=== PATIENT | female | born 1945 ===

== ENCOUNTER 2018-06-27 09:49 | Inpatient (IN) | payer MEDICARE ==
[2018-06-27 10:04] VITALS: BMI 30.7
[2018-06-27 10:08] LABS: BASO # 0.1 K/uL (0.0-0.2); BASO % 0.8 % (0.0-2.0); EOS # 0.2 K/uL (0.0-0.7); HEMOGLOBIN 12.2 g/dL (11.0-16.0); LYMPH # 5.3 K/uL (1.0-4.3); LYMPH % 29.6 % (20.0-40.0); MEAN CELL VOLUME 83.2 fL (81.0-99.0); MEAN CORPUSCULAR HEMOGLOBIN 27.3 pg (27.0-31.0); MEAN CORPUSCULAR HGB CONC 32.8 g/dL (33.0-37.0); MEAN PLATELET VOLUME 8.7 fL (7.2-11.7); MONO # 1.3 K/uL (0.0-0.8); MONO % 7.3 % (0.0-10.0); NEUT % 61.3 % (50.0-75.0); NRBC % 0.1 % (0.0-2.0); RBC 4.48 Mil/uL (3.80-5.20); RED CELL DISTRIBUTION WIDTH 16.3 % (11.5-14.5)
[2018-06-27 10:20] LABS: BLOOD UREA NITROGEN 21 mg/dL (7-17); CALCIUM 8.9 mg/dl (8.6-10.4); GFR NON-AFRICAN AMERICAN > 60
[2018-06-27 10:27] LABS: ALBUMIN 4.2 g/dL (3.5-5.0); ALT/SGPT 33 U/L (9-52); AST/SGOT 48 U/L (14-36)
[2018-06-27] MEDS ORDERED: Nitroglycerin 2% Ointment Foilpak UD TOP STA (10:27)
[2018-06-27] MEDS ORDERED: Nitroglycerin 2% Ointment Foilpak UD TOP ONE (10:36)
--- NOTE | 2018-06-27 10:56 | C.PDOC ---
History Of Present Illness 72 y/o female is brought in via ALS with chief complaints of chest pain. Patient complains of left-sided chest pain radiating to jaw that started this morning. Patient has history of valve replacement and atrial fibrillation, takes warfarin. Patient describes the pain is dull and constant. Denies back pain. EMS alerted ER and Dr. Barreto for possible STEMI. Time Seen by Provider: 06/27/18 09:59 Chief Complaint (Nursing): Chest Pain History Per: Patient, EMS History/Exam Limitations: no limitations Onset/Duration Of Symptoms: Hrs Current Symptoms Are (Timing): Still Present Past Medical History Reviewed: Historical Data, Nursing Documentation, Vital Signs Vital Signs: Last Vital Signs Temp 98.4 F 06/27/18 10:19 Pulse 70 06/27/18 10:19 Resp 18 06/27/18 10:19 BP 159/82 H 06/27/18 10:19 Pulse Ox 97 06/27/18 10:19 Primary Care Provider: Heather Brooke - Medical History PMH: Atrial Fibrillation, Cardia Arrhythmia, HTN, Hypercholesterolemia Surgical History: CABG Family History: States: CAD - Social History Hx Tobacco Use: No Hx Alcohol Use: No Hx Substance Use: No - Immunization History Hx Tetanus Toxoid Vaccination: No Hx Influenza Vaccination: Yes (10/2017) Hx Pneumococcal Vaccination: Yes Review Of Systems Except As Marked, All Systems Reviewed And Found Negative. Constitutional: Negative for: Fever, Sweats Cardiovascular: Positive for: Chest Pain (left-sided) Respiratory: Negative for: Cough, Shortness of Breath Gastrointestinal: Negative for: Nausea, Vomiting Physical Exam - Physical Exam Appears: Non-toxic, No Acute Distress Skin: Warm, Dry Head: Atraumatic, Normacephalic Eye(s): bilateral: Normal Inspection Oral Mucosa: Moist Neck: Supple Cardiovascular: Rhythm Regular, No Murmur Respiratory: Normal Breath Sounds, No Rales, No Rhonchi, No Wheezing Gastrointestinal/Abdominal: Soft, No Tenderness Extremity: Bilateral: Atraumatic, Normal ROM Neurological/Psych: Oriented x3, Normal Speech ED Course And Treatment - Laboratory Results Result Diagrams: 06/27/18 10:03 06/27/18 10:03 Lab Results: Troponin I 0.0370 ng/mL (0.00-0.120) 06/27/18 10:03 Total Bilirubin 0.9 mg/dL (0.2-1.3) 06/27/18 10:03 AST 48 U/L (14-36) H 06/27/18 10:03 ALT 33 U/L (9-52) 06/27/18 10:03 Alkaline Phosphatase 140 U/L (38-126) H 06/27/18 10:03 Total Protein 8.1 g/dL (6.3-8.3) 06/27/18 10:03 Albumin 4.2 g/dL (3.5-5.0) 06/27/18 10:03 Globulin 4.0 gm/dL (2.2-3.9) H 06/27/18 10:03 Albumin/Globulin Ratio 1.0 (1.0-2.1) 06/27/18 10:03 ECG: Interpreted By Me, Viewed By Me ECG Rhythm: Atrial Fibrillation Interpretation Of ECG: ST depression in leads aVF, v3-v6. No ST elevation. Rate From EC O2 Sat by Pulse Oximetry: 97 (RA) Pulse Ox Interpretation: Normal - Other Rad CXR X-Ray: Read By Radiologist Interpretation: FINDINGS: LUNGS: Wabq-lf-snmhptlh pulmonary vascular congestion is noted. PLEURA: Blunting of the costophrenic angle. CARDIOVASCULAR: Cardiomegaly is noted. Post cardiac surgery changes are noted. OSSEOUS STRUCTURES: No significant abnormalities. VISUALIZED UPPER ABDOMEN: Normal. OTHER FINDINGS: None. IMPRESSION: Cardiomegaly and ojfk-ng-zuoyhako pulmonary vascular congestion. Medical Decision Making Medical Decision Making: Plan: --EKG --Labs --Chest XR --Lasix 40 mg IVP --Nitro-Bid Re-evaluation: 10:55 -- Patient has improved and Dr. Doshi is in the ER to evaluate patient. Accepted patient for admission. Disposition Discussed With : Johnnie Doshi Doctor Will See Patient In The: ED Counseled Patient/Family Regarding: Diagnosis - Disposition Disposition: HOSPITALIZED Disposition Time: 10:56 Condition: STABLE - Clinical Impression Clinical Impression: Chest pain, Heart failure - Scribe Statement The provider has reviewed the documentation as recorded by the Tod Livingston Provider Attestation: All medical record entries made by the Lisaibmila were at my direction and personally dictated by me. I have reviewed the chart and agree that the record accurately reflects my personal performance of the history, physical exam, medical decision making, and the department course for this patient. I have also personally directed, reviewed, and agree with the discharge instructions and disposition.
[2018-06-27 11:28] LABS: B-TYPE NATRIURETIC PEPTIDE 380 pg/mL (0-900)
--- NOTE | 2018-06-27 11:29 | RAD ---
Date of service: 06/27/2018 PROCEDURE: CHEST RADIOGRAPH, 1 VIEW HISTORY: chest pain COMPARISON: None available. FINDINGS: LUNGS: Alet-vw-qwtcrmfj pulmonary vascular congestion is noted. PLEURA: Blunting of the costophrenic angle CARDIOVASCULAR: Cardiomegaly is noted. Post cardiac surgery changes are noted. OSSEOUS STRUCTURES: No significant abnormalities. VISUALIZED UPPER ABDOMEN: Normal. OTHER FINDINGS: None. IMPRESSION: Cardiomegaly and jzlx-bj-snfunpht pulmonary vascular congestion.
[2018-06-27 14:28] LABS: INR 4.2; PROTHROMBIN TIME 46.6 SECONDS (9.7-12.2)
--- NOTE | 2018-06-27 15:24 | CP.PCM.HP ---
Past Patient History - Past Social History Smoking Status: Never Smoked - CARDIAC Hx Atrial Fibrillation: Yes Hx Cardia Arrhythmia: Yes Hx Hypercholesterolemia: Yes Hx Hypertension: Yes - PSYCHIATRIC Hx Substance Use: No - SURGICAL HISTORY Hx Coronary Artery Bypass Graft: Yes Meds Allergies/Adverse Reactions: Allergies Allergy/AdvReac Type Severity Reaction Status Date / Time No Known Allergies Allergy Verified 06/27/18 09:52 Physical Exam - Constitutional Appears: Well - Head Exam Head Exam: ATRAUMATIC, NORMAL INSPECTION, NORMOCEPHALIC - Eye Exam Eye Exam: EOMI, Normal appearance, PERRL Pupil Exam: NORMAL ACCOMODATION, PERRL - ENT Exam ENT Exam: Mucous Membranes Moist, Normal Exam - Neck Exam Neck exam: Positive for: Normal Inspection - Respiratory Exam Respiratory Exam: Decreased Breath Sounds - Cardiovascular Exam Cardiovascular Exam: REGULAR RHYTHM, +S1, +S2 - GI/Abdominal Exam GI & Abdominal Exam: Diminished Bowel Sounds, Soft - Rectal Exam Rectal Exam: Deferred - Neurological Exam Neurological exam: Oriented x3 Results - Vital Signs Recent Vital Signs: Last Vital Signs Temp 98.2 F 06/27/18 11:38 Pulse 79 06/27/18 11:38 Resp 16 06/27/18 11:38 BP 144/80 06/27/18 11:38 Pulse Ox 97 06/27/18 11:58 - Labs Result Diagrams: 06/27/18 10:03 06/27/18 10:03 Labs: Laboratory Results - last 24 hr 06/27/18 06/27/18 06/27/18 10:03 10:03 13:54 WBC 18.0 H RBC 4.48 Hgb 12.2 Hct 37.3 MCV 83.2 MCH 27.3 MCHC 32.8 L RDW 16.3 H Plt Count 283 MPV 8.7 Neut % (Auto) 61.3 Lymph % (Auto) 29.6 [place] % (Auto) 7.3 Eos % (Auto) 1.0 Baso % (Auto) 0.8 Neut # (Auto) 11.0 H Lymph # (Auto) 5.3 H [place] # (Auto) 1.3 H Eos # (Auto) 0.2 Baso # (Auto) 0.1 PT 46.6 H INR 4.2 H* Sodium 135 Potassium 4.5 Chloride 103 Carbon Dioxide 23 Anion Gap 14 BUN 21 H Creatinine 0.6 L Est GFR ( Amer) > 60 Est GFR (Non-Af Amer) > 60 Random Glucose 117 H D Calcium 8.9 Total Bilirubin 0.9 AST 48 H ALT 33 Alkaline Phosphatase 140 H Troponin I 0.0370 NT-Pro-B Natriuret Pep 380 Total Protein 8.1 Albumin 4.2 Globulin 4.0 H Albumin/Globulin Ratio 1.0
[2018-06-27 17:38] LABS: CK-MB 7.16 ng/mL (0.0-3.38); TROPONIN I 2.11 ng/mL (0.00-0.120)
[2018-06-28 00:57] LABS: CK-MB 6.29 ng/mL (0.0-3.38); TROPONIN I 1.7 ng/mL (0.00-0.120)
[2018-06-28] MEDS: Levothyroxine 150 MCG TAB PO SCH (06:04)
[2018-06-28 08:15] LABS: BASO % 0.3 % (0.0-2.0); EOS # 0.2 K/uL (0.0-0.7); EOS % 1.6 % (0.0-4.0); HEMOGLOBIN 13.1 g/dL (11.0-16.0); LYMPH # 2.7 K/uL (1.0-4.3); LYMPH % 22.6 % (20.0-40.0); MEAN CELL VOLUME 82.9 fL (81.0-99.0); MEAN CORPUSCULAR HEMOGLOBIN 27.3 pg (27.0-31.0); MEAN CORPUSCULAR HGB CONC 32.9 g/dL (33.0-37.0); MEAN PLATELET VOLUME 8.5 fL (7.2-11.7); MONO # 1.1 K/uL (0.0-0.8); MONO % 9.2 % (0.0-10.0); NEUT % 66.3 % (50.0-75.0); NRBC % 0.1 % (0.0-2.0); RBC 4.78 Mil/uL (3.80-5.20); RED CELL DISTRIBUTION WIDTH 16.5 % (11.5-14.5); WHITE BLOOD COUNT 12.1 K/uL (4.8-10.8)
[2018-06-28 08:27] LABS: BLOOD UREA NITROGEN 21 mg/dL (7-17); CALCIUM 8.9 mg/dl (8.6-10.4); GFR NON-AFRICAN AMERICAN > 60; HDL CHOLESTEROL 48 mg/dL (30-70)
[2018-06-28 08:35] LABS: INR 4.4; PROTHROMBIN TIME 47.8 SECONDS (9.7-12.2)
[2018-06-28 08:38] LABS: LDL CHOLESTEROL 143 mg/dL (0-129)
[2018-06-28] MEDS: Metoprolol Succinate 50 mg XL Tab PO SCH (09:29)
[2018-06-28] MEDS ORDERED: Enoxaparin 40 mg Syringe SC SCH (10:00)
[2018-06-28] MEDS ORDERED: Metoprolol Succinate 50 mg XL Tab PO SCH (10:00)
--- NOTE | 2018-06-28 16:06 | CP.PCM.PN ---
Subjective - Date & Time of Evaluation Date of Evaluation: 06/28/18 - Subjective Subjective: patient examined today no nausea no vomitng no diarrhea no dizziness no shortness of breath no fever Objective - Vital Signs/Intake and Output Vital Signs (last 24 hours): Temp Pulse Resp BP Pulse Ox 98.5 F 83 20 92/54 L 95 06/28/18 08:58 06/28/18 11:03 06/28/18 08:58 06/28/18 09:29 06/28/18 08:58 - Medications Medications: Current Medications Aspirin (Aspirin Chewable) 81 mg PO DAILY [facility] Last Admin: 06/28/18 09:29 Dose: 81 mg Furosemide (Lasix) 40 mg IVP DAILY [facility] Last Admin: 06/28/18 09:29 Dose: Not Given Levothyroxine Sodium (Synthroid) 150 mcg PO DAILY@0630 [facility] Last Admin: 06/28/18 06:04 Dose: 150 mcg Losartan Potassium (Cozaar) 25 mg PO DAILY [facility] Last Admin: 06/28/18 09:29 Dose: Not Given Metoprolol Succinate (Toprol Xl) 50 mg PO DAILY [facility] Last Admin: 06/28/18 09:29 Dose: Not Given Rosuvastatin Calcium (Crestor) 20 mg PO [facility] - Labs Labs: 06/28/18 08:09 06/28/18 08:09 PT 47.8 SECONDS (9.7-12.2) H 06/28/18 08:09 INR 4.4 H* 06/28/18 08:09 - Constitutional Appears: Well - Head Exam Head Exam: ATRAUMATIC, NORMAL INSPECTION, NORMOCEPHALIC - Eye Exam Eye Exam: EOMI, Normal appearance, PERRL Pupil Exam: NORMAL ACCOMODATION, PERRL - ENT Exam ENT Exam: Mucous Membranes Moist, Normal Exam - Neck Exam Neck Exam: Full ROM, Normal Inspection. absent: Lymphadenopathy - Respiratory Exam Respiratory Exam: Decreased Breath Sounds - Cardiovascular Exam Cardiovascular Exam: REGULAR RHYTHM, +S1, +S2 - GI/Abdominal Exam GI & Abdominal Exam: Soft, Diminished Bowel Sounds - Rectal Exam Rectal Exam: Deferred - Neurological Exam Neurological Exam: Oriented x3 Assessment and Plan - Assessment and Plan (Free Text) Plan: plan discussed with patient and family moderate complexity of care medications reviewed aspirin chewable cozaar crestor lasix synthroid toprol xl vitals reviewed labs reviewed
--- NOTE | 2018-06-28 20:44 | CP.PCM.CON ---
History of Present Illness - History of Present Illness History of Present Illness: 72 y/o female is brought in via ALS with chief complaints of chest pain. Patient complains of left-sided chest pain radiating to jaw that started this morning. Patient has history of valve replacement and atrial fibrillation, takes war farin. Patient describes the pain is dull and constant. Denies back pain. EMS alerted ER and Dr. Barreto for possible STEMI. Chief Complaint (Nursing): Chest Pain History Per: Patient, EMS History/Exam Limitations: no limitations Onset/Duration Of Symptoms: Hrs Current Symptoms Are (Timing): Still Present Past Medical History Reviewed: Historical Data, Nursing Documentation, Vital Signs Vital Signs: Last Vital Signs Temp 98.4 F 06/27/18 10:19 Pulse 70 06/27/18 10:19 Resp 18 06/27/18 10:19 BP 159/82 H 06/27/18 10:19 Pulse Ox 97 06/27/18 10:19 Primary Care Provider: Heather Brooke - Medical History PMH: Atrial Fibrillation, Cardia Arrhythmia, HTN, Hypercholesterolemia Surgical History: CABG Family History: States: CAD - Social History Hx Tobacco Use: No Hx Alcohol Use: No Hx Substance Use: No - Immunization History Hx Tetanus Toxoid Vaccination: No Hx Influenza Vaccination: Yes (10/2017) Hx Pneumococcal Vaccination: Yes Review Of Systems Except As Marked, All Systems Reviewed And Found Negative. Constitutional: Negative for: Fever, Sweats Cardiovascular: Positive for: Chest Pain (left-sided) Respiratory: Negative for: Cough, Shortness of Breath Gastrointestinal: Negative for: Nausea, Vomiting Physical Exam - Physical Exam Appears: Non-toxic, No Acute Distress Skin: Warm, Dry Head: Atraumatic, Normacephalic Eye(s): bilateral: Normal Inspection Oral Mucosa: Moist Neck: Supple Cardiovascular: Rhythm Regular, No Murmur Respiratory: Normal Breath Sounds, No Rales, No Rhonchi, No Wheezing Gastrointestinal/Abdominal: Soft, No Tenderness Extremity: Bilateral: Atraumatic, Normal ROM Neurological/Psych: Oriented x3, Normal Speech Past Patient History - Past Social History Smoking Status: Never Smoked - CARDIAC Hx Atrial Fibrillation: Yes Hx Cardia Arrhythmia: Yes Hx Hypercholesterolemia: Yes Hx Hypertension: Yes - PSYCHIATRIC Hx Substance Use: No - SURGICAL HISTORY Hx Coronary Artery Bypass Graft: Yes Meds Allergies/Adverse Reactions: Allergies Allergy/AdvReac Type Severity Reaction Status Date / Time No Known Allergies Allergy Verified 06/27/18 09:52 - Medications Medications: Current Medications Aspirin (Aspirin Chewable) 81 mg PO DAILY [facility] Last Admin: 06/28/18 09:29 Dose: 81 mg Furosemide (Lasix) 20 mg IVP DAILY [facility] Levothyroxine Sodium (Synthroid) 150 mcg PO DAILY@0630 [facility] Last Admin: 06/28/18 06:04 Dose: 150 mcg Losartan Potassium (Cozaar) 25 mg PO DAILY [facility] Last Admin: 06/28/18 09:29 Dose: Not Given Metoprolol Succinate (Toprol Xl) 50 mg PO DAILY [facility] Last Admin: 06/28/18 09:29 Dose: Not Given Rosuvastatin Calcium (Crestor) 20 mg PO [facility] Results - Vital Signs Recent Vital Signs: Last Vital Signs Temp 98.5 F 06/28/18 08:58 Pulse 79 06/28/18 20:00 Resp 20 06/28/18 08:58 BP 92/54 L 06/28/18 09:29 Pulse Ox 95 06/28/18 08:58 - Labs Result Diagrams: 06/28/18 08:09 06/28/18 08:09 Labs: Laboratory Results - last 24 hr 06/28/18 06/28/18 06/28/18 00:22 08:09 08:09 WBC 12.1 H RBC 4.78 Hgb 13.1 Hct 39.7 MCV 82.9 MCH 27.3 MCHC 32.9 L RDW 16.5 H Plt Count 281 MPV 8.5 Neut % (Auto) 66.3 Lymph % (Auto) 22.6 [place] % (Auto) 9.2 Eos % (Auto) 1.6 Baso % (Auto) 0.3 Neut # (Auto) 8.0 H Lymph # (Auto) 2.7 [place] # (Auto) 1.1 H Eos # (Auto) 0.2 Baso # (Auto) 0.0 PT INR Sodium 136 Potassium 4.0 Chloride 100 Carbon Dioxide 27 Anion Gap 14 BUN 21 H Creatinine 0.7 Est GFR ( Amer) > 60 Est GFR (Non-Af Amer) > 60 Random Glucose 105 Calcium 8.9 Total Creatine Kinase 98 CK-MB (Mass) 6.29 H Troponin I 1.7000 H* Triglycerides 213 H Cholesterol 236 H LDL Cholesterol Direct 143 H HDL Cholesterol 48 Free T4 TSH 3rd Generation 3.74 06/28/18 06/28/18 08:09 08:09 WBC RBC Hgb Hct MCV MCH MCHC RDW Plt Count MPV Neut % (Auto) Lymph % (Auto) [place] % (Auto) Eos % (Auto) Baso % (Auto) Neut # (Auto) Lymph # (Auto) [place] # (Auto) Eos # (Auto) Baso # (Auto) PT 47.8 H INR 4.4 H* Sodium Potassium Chloride Carbon Dioxide Anion Gap BUN Creatinine Est GFR ( Amer) Est GFR (Non-Af Amer) Random Glucose Calcium Total Creatine Kinase CK-MB (Mass) Troponin I Triglycerides Cholesterol LDL Cholesterol Direct HDL Cholesterol Free T4 1.26 TSH 3rd Generation Assessment & Plan - Assessment and Plan (Free Text) Assessment: 72 F with hx of A Fib admitted for ACS INR >4.0 Start ASA 81 daily Start Statins, B blockers and Nitrates Check ECHO. Follow ROMIs and INR Once INR <2.0 cardiac cath Will d/w Patient's Primary Loan Collector
--- NOTE | 2018-06-28 20:57 | CP.PCM.PN ---
Subjective - Date & Time of Evaluation Date of Evaluation: 06/28/18 Time of Evaluation: 18:25 - Subjective Subjective: Patient seen and evaluated denies chest pain and dyspnea Review Of Systems Except As Marked, All Systems Reviewed And Found Negative. Constitutional: Negative for: Fever, Sweats Cardiovascular: Positive for: Chest Pain (left-sided) Respiratory: Negative for: Cough, Shortness of Breath Gastrointestinal: Negative for: Nausea, Vomiting Physical Exam - Physical Exam Appears: Non-toxic, No Acute Distress Skin: Warm, Dry Head: Atraumatic, Normacephalic Eye(s): bilateral: Normal Inspection Oral Mucosa: Moist Neck: Supple Cardiovascular: Rhythm Regular, No Murmur Respiratory: Normal Breath Sounds, No Rales, No Rhonchi, No Wheezing Gastrointestinal/Abdominal: Soft, No Tenderness Extremity: Bilateral: Atraumatic, Normal ROM Neurological/Psych: Oriented x3, Normal Speech Objective - Vital Signs/Intake and Output Vital Signs (last 24 hours): Temp Pulse Resp BP Pulse Ox 98.5 F 79 20 92/54 L 95 06/28/18 08:58 06/28/18 20:00 06/28/18 08:58 06/28/18 09:29 06/28/18 08:58 - Medications Medications: Current Medications Aspirin (Aspirin Chewable) 81 mg PO DAILY [facility] Last Admin: 06/28/18 09:29 Dose: 81 mg Furosemide (Lasix) 20 mg IVP DAILY [facility] Levothyroxine Sodium (Synthroid) 150 mcg PO DAILY@0630 [facility] Last Admin: 06/28/18 06:04 Dose: 150 mcg Losartan Potassium (Cozaar) 25 mg PO DAILY [facility] Last Admin: 06/28/18 09:29 Dose: Not Given Metoprolol Succinate (Toprol Xl) 50 mg PO DAILY [facility] Last Admin: 06/28/18 09:29 Dose: Not Given Rosuvastatin Calcium (Crestor) 20 mg PO [facility] - Labs Labs: 06/28/18 08:09 06/28/18 08:09 PT 47.8 SECONDS (9.7-12.2) H 06/28/18 08:09 INR 4.4 H* 06/28/18 08:09 Assessment and Plan - Assessment and Plan (Free Text) Assessment: 72 F with hx of A Fib admitted for ACS INR >4.0 On ASA 81 daily On Statins, B blockers and Nitrates Check ECHO. Follow ROMIs and INR Once INR <2.0 cardiac cath Will d/w Patient's Primary Call Center Trainer
[2018-06-29] MEDS: Levothyroxine 150 MCG TAB PO SCH (05:41)
[2018-06-29 08:38] LABS: HEMOGLOBIN 12.9 g/dL (11.0-16.0); MEAN CELL VOLUME 83.2 fL (81.0-99.0); MEAN CORPUSCULAR HEMOGLOBIN 27.2 pg (27.0-31.0); MEAN CORPUSCULAR HGB CONC 32.7 g/dL (33.0-37.0); MEAN PLATELET VOLUME 8.3 fL (7.2-11.7); RBC 4.75 Mil/uL (3.80-5.20); RED CELL DISTRIBUTION WIDTH 16.6 % (11.5-14.5); WHITE BLOOD COUNT 11.3 K/uL (4.8-10.8)
[2018-06-29 08:49] LABS: BLOOD UREA NITROGEN 22 mg/dL (7-17); CALCIUM 8.9 mg/dl (8.6-10.4); GFR NON-AFRICAN AMERICAN > 60
[2018-06-29 08:58] LABS: INR 3.1; PROTHROMBIN TIME 34.2 SECONDS (9.7-12.2)
[2018-06-29 09:07] LABS: CK-MB 1.65 ng/mL (0.0-3.38)
[2018-06-29] MEDS: Metoprolol Succinate 50 mg XL Tab PO SCH (09:08)
--- NOTE | 2018-06-29 13:52 | VASCLAB ---
Date of service: 06/29/2018 PROCEDURE: Lower Extremity Venous Duplex Exam. HISTORY: B/L extremities swelling PRIORS: None. TECHNIQUE: Bilateral common femoral, femoral, popliteal and posterior tibial, peroneal and great saphenous veins were evaluated. Flow was assessed with color Doppler, compressibility, assessment of phasic flow and augmentation response. Report prepared by BESS Chu FINDINGS: RIGHT: 1. Common Femoral Vein: 1.1. Compressibility - Fully compressible: Thrombus - None : Flow - Phasic: Augmentation -Normal: Reflux - None. 2. Femoral Vein: 2.1. Compressibility - Fully compressible: Thrombus - None : Flow - Phasic: Augmentation -Normal: Reflux - None. 3. Popliteal Vein: 3.1. Compressibility - Fully compressible: Thrombus - None : Flow - Phasic: Augmentation -Normal: Reflux - None. 4. Posterior Tibial Vein: 4.1. Compressibility - Fully compressible: Thrombus - None: Flow - Phasic: Augmentation -Normal: Reflux - None. 5. Peroneal Vein: 5.1. Compressibility - Fully compressible: Thrombus - None: Flow - Phasic: Augmentation -Normal: Reflux - None. 6. Great Saphenous Vein: 6.1. Compressibility - Fully compressible: Thrombus - None: Flow - Phasic: Augmentation - Normal: Reflux - None. LEFT: 1. Common Femoral Vein: 1.1. Compressibility - Fully compressible: Thrombus - None: Flow - Phasic: Augmentation -Normal: Reflux - None. 2. Femoral Vein: 2.1. Compressibility - Fully compressible: Thrombus - None: Flow - Phasic: Augmentation -Normal: Reflux - None. 3. Popliteal Vein: 3.1. Compressibility - Fully compressible: Thrombus - None : Flow - Phasic: Augmentation -Normal: Reflux - None. 4. Posterior Tibial Vein: 4.1. Compressibility - Fully compressible: Thrombus - None: Flow - Phasic: Augmentation -Normal: Reflux - None. 5. Peroneal Vein: 5.1. Compressibility - Fully compressible: Thrombus - None: Flow - Phasic: Augmentation -Normal: Reflux - None. 6. Great Saphenous Vein: 6.1. Compressibility - Fully compressible: Thrombus - None: Flow - Phasic: Augmentation - Normal: Reflux - None. OTHER FINDINGS: Right: None significant. Left: None significant. IMPRESSION: Right: No evidence of deep or superficial vein thrombosis of the right lower extremity. Normal valve function noted of the right side. Left: No evidence of deep or superficial vein thrombosis of the left lower extremity. Normal valve function noted of the left side.
--- NOTE | 2018-06-29 19:15 | CP.PCM.PN ---
Subjective - Date & Time of Evaluation Date of Evaluation: 06/29/18 - Subjective Subjective: patient examined today no nasusea no vomiting no fever no dizziness no shortness of breath Objective - Vital Signs/Intake and Output Vital Signs (last 24 hours): Temp Pulse Resp BP Pulse Ox 98.5 F 71 18 106/63 95 06/29/18 15:35 06/29/18 16:00 06/29/18 15:35 06/29/18 15:35 06/29/18 15:35 - Medications Medications: Current Medications Aspirin (Aspirin Chewable) 81 mg PO DAILY [facility] Last Admin: 06/29/18 09:08 Dose: 81 mg Furosemide (Lasix) 20 mg IVP DAILY [facility] Last Admin: 06/29/18 09:09 Dose: 20 mg Levothyroxine Sodium (Synthroid) 150 mcg PO DAILY@0630 [facility] Last Admin: 06/29/18 05:41 Dose: 150 mcg Losartan Potassium (Cozaar) 25 mg PO DAILY [facility] Last Admin: 06/29/18 09:08 Dose: 25 mg Metoprolol Succinate (Toprol Xl) 50 mg PO DAILY [facility] Last Admin: 06/29/18 09:08 Dose: 50 mg Rosuvastatin Calcium (Crestor) 20 mg PO HS [facility] Last Admin: 06/28/18 21:15 Dose: 20 mg - Labs Labs: 06/29/18 08:27 06/29/18 08:27 PT 34.2 SECONDS (9.7-12.2) H D 06/29/18 08:27 INR 3.1 H* D 06/29/18 08:27 - Constitutional Appears: Well - Head Exam Head Exam: ATRAUMATIC, NORMAL INSPECTION, NORMOCEPHALIC - Eye Exam Eye Exam: EOMI, Normal appearance, PERRL Pupil Exam: NORMAL ACCOMODATION, PERRL - ENT Exam ENT Exam: Mucous Membranes Moist, Normal Exam - Neck Exam Neck Exam: Full ROM, Normal Inspection. absent: Lymphadenopathy - Respiratory Exam Respiratory Exam: Decreased Breath Sounds - Cardiovascular Exam Cardiovascular Exam: REGULAR RHYTHM, +S1, +S2 - GI/Abdominal Exam GI & Abdominal Exam: Soft, Diminished Bowel Sounds - Rectal Exam Rectal Exam: Deferred - Neurological Exam Neurological Exam: Oriented x3 Assessment and Plan - Assessment and Plan (Free Text) Plan: aspirin chewable cozaar crestor lasix synthroid toprol xl vitals reviewed labs reviewed plan discussed with patient and family moderate complexity of care medications reviewed
--- NOTE | 2018-06-29 19:49 | CARD ---
APPROVED REPORT Date of service: 06/27/2018 EKG Measurement Heart [id number] <Conclusion> Atrial fibrillation ST & T wave abnormality, consider inferior ischemia Abnormal ECG
--- NOTE | 2018-06-29 21:14 | CARD ---
APPROVED REPORT Date of service: 06/29/2018 EXAM: Two-dimensional and M-mode echocardiogram with Doppler and color Doppler. INDICATION Atrial Fibrillation cabg, mvr RISK FACTORS Hypertension Hyperlipidemia 2D DIMENSIONS IVSd1.0 (0.7-1.1cm)LVDd3.9 (3.9-5.9cm) PWd1.0 (0.7-1.1cm)LA Devxpw97 (18-58mL) LVDs2.7 (2.5-4.0cm)FS (%) 30.8 % LVEF (%)59.0 (>50%)LVEF (Pantoja's)61.17 % M-Mode DIMENSIONS Left Atrium (MM)5.41 (2.5-4.0cm)IVSd1.02 (0.7-1.1cm) Aortic Root2.91 (2.2-3.7cm)LVDd5.27 (4.0-5.6cm) Aortic Cusp Exc.1.99 (1.5-2.0cm)PWd0.80 (0.7-1.1cm) FS (%) 19 %LVDs4.24 (2.0-3.8cm) LVEF (%)60 (>50%) Mitral Valve MV E Eqbpszww464.6cm/sMV E Peak Gr.8mmHgMV E Mean Gr.3mmHg E/A ratio0.0 TDI E/Lateral E'0.0E/Medial E'0.0 Tricuspid Valve TR Peak [id number]/sTR Peak Gr.[id number] LEFT VENTRICLE The left ventricle is normal size. There is normal left ventricular wall thickness. The left ventricular function is normal. The left ventricular ejection fraction is within the normal range. 61% No regional wall motion abnormalities noted. The left ventricular diastolic function is indterminate No left ventricle thrombus noted on this study. There is no ventricular septal defect visualized. There is no left ventricular aneurysm. There is no mass noted in the left ventricle. RIGHT VENTRICLE The right ventricle is normal size. There is normal right ventricular wall thickness. The right ventricular systolic function is normal. ATRIA The left atrium size is normal. The right atrium size is mildly dilated. The interatrial septum is intact with no evidence for an atrial septal defect. AORTIC VALVE The aortic valve is normal in structure and function. Trace aortic regurgitation is present. There is no aortic valvular stenosis. There is no aortic valvular vegetation. MITRAL VALVE A mechanical mitral valve is present. There is no rocking, mitral regurgitation or paravalvular leak noted. Peak/mean gradients are 8/3.1 mm Hg. ] TRICUSPID VALVE The tricuspid valve is s/p repair. No gradients obtained. The valve appears to open well. There is no tricuspid valve prolapse or vegetation. There is no tricuspid valve stenosis. PULMONIC VALVE The pulmonary valve is normal in structure and function. There is no pulmonic valvular regurgitation. There is no pulmonic valvular stenosis. GREAT VESSELS The aortic root is normal in size. The ascending aorta is normal in size. The pulmonary artery is normal. The IVC is normal in size and collapses >50% with inspiration. PERICARDIAL EFFUSION The pericardium appears normal. There is no pleural effusion. <Conclusion> The left ventricular function is normal. Trace aortic regurgitation is present. A mechanical mitral valve is present. There is no rocking, mitral regurgitation or paravalvular leak noted. Peak/mean gradients are 8/3.1 mm Hg. Vlave function apepars normal.
[2018-06-30] MEDS: Levothyroxine 150 MCG TAB PO SCH (05:33)
[2018-06-30 07:50] VITALS: RESP 20
[2018-06-30] MEDS: Metoprolol Succinate 50 mg XL Tab PO SCH (09:00)
[2018-06-30 16:39] VITALS: BP 100/52; TEMP 98.7; O2SAT 96
[2018-06-30 16:43] VITALS: PULSE 80
--- NOTE | 2018-06-30 19:07 | CP.PCM.PN ---
Subjective - Date & Time of Evaluation Date of Evaluation: 06/30/18 - Subjective Subjective: patient examined today no nausea no diarrhea no vomiting no fever no dizziness no shortness of breath Objective - Vital Signs/Intake and Output Vital Signs (last 24 hours): Temp Pulse Resp BP Pulse Ox 98.7 F 80 20 100/52 L 96 06/30/18 15:38 06/30/18 16:00 06/30/18 15:38 06/30/18 15:38 06/30/18 15:38 Intake and Output: 06/30/18 07/01/18 18:59 06:59 Intake Total 400 Balance 400 - Labs Labs: 06/29/18 08:27 06/29/18 08:27 PT 34.2 SECONDS (9.7-12.2) H D 06/29/18 08:27 INR 3.1 H* D 06/29/18 08:27 - Constitutional Appears: Well - Head Exam Head Exam: ATRAUMATIC, NORMAL INSPECTION, NORMOCEPHALIC - Eye Exam Eye Exam: EOMI, Normal appearance, PERRL Pupil Exam: NORMAL ACCOMODATION, PERRL - ENT Exam ENT Exam: Mucous Membranes Moist, Normal Exam - Neck Exam Neck Exam: Full ROM, Normal Inspection. absent: Lymphadenopathy - Respiratory Exam Respiratory Exam: Wheezes - Cardiovascular Exam Cardiovascular Exam: REGULAR RHYTHM, +S1, +S2 - GI/Abdominal Exam GI & Abdominal Exam: Soft, Diminished Bowel Sounds - Rectal Exam Rectal Exam: Deferred - Neurological Exam Neurological Exam: Oriented x3 Assessment and Plan - Assessment and Plan (Free Text) Plan: plan discussed with patient moderate complexity of care labs reviewed vitals reviewed medications reviewed warfarin sodium metropolo succinate unithroid jantoven
--- NOTE | 2018-06-30 21:53 | CP.PCM.PN ---
Subjective - Date & Time of Evaluation Date of Evaluation: 06/29/18 Time of Evaluation: 20:30 - Subjective Subjective: Patient seen and evaluated denies chest pain and dyspnea Review Of Systems Except As Marked, All Systems Reviewed And Found Negative. Constitutional: Negative for: Fever, Sweats Cardiovascular: Positive for: Chest Pain (left-sided) Respiratory: Negative for: Cough, Shortness of Breath Gastrointestinal: Negative for: Nausea, Vomiting Physical Exam - Physical Exam Appears: Non-toxic, No Acute Distress Skin: Warm, Dry Head: Atraumatic, Normacephalic Eye(s): bilateral: Normal Inspection Oral Mucosa: Moist Neck: Supple Cardiovascular: Rhythm Regular, No Murmur Respiratory: Normal Breath Sounds, No Rales, No Rhonchi, No Wheezing Gastrointestinal/Abdominal: Soft, No Tenderness Extremity: Bilateral: Atraumatic, Normal ROM Neurological/Psych: Oriented x3, Normal Speech Assessment and Plan - Assessment and Plan (Free Text) Assessment: 72 F with hx of A Fib admitted for ACS On ASA 81 daily On Statins, B blockers and Nitrates As per Family request and Patient Primary Cardiology request patient will be transferred to either [place] or [place] Objective - Vital Signs/Intake and Output Vital Signs (last 24 hours): Temp Pulse Resp BP Pulse Ox 98.7 F 80 20 100/52 L 96 06/30/18 15:38 06/30/18 16:00 06/30/18 15:38 06/30/18 15:38 06/30/18 15:38 Intake and Output: 06/30/18 07/01/18 18:59 06:59 Intake Total 400 Balance 400 - Labs Labs: 06/29/18 08:27 06/29/18 08:27 PT 34.2 SECONDS (9.7-12.2) H D 06/29/18 08:27 INR 3.1 H* D 06/29/18 08:27
--- NOTE | 2018-06-30 21:54 | CP.PCM.PN ---
Subjective - Date & Time of Evaluation Date of Evaluation: 06/30/18 Time of Evaluation: 08:40 - Subjective Subjective: Patient seen and evaluated denies chest pain and dyspnea Review Of Systems Except As Marked, All Systems Reviewed And Found Negative. Constitutional: Negative for: Fever, Sweats Cardiovascular: Positive for: Chest Pain (left-sided) Respiratory: Negative for: Cough, Shortness of Breath Gastrointestinal: Negative for: Nausea, Vomiting Physical Exam - Physical Exam Appears: Non-toxic, No Acute Distress Skin: Warm, Dry Head: Atraumatic, Normacephalic Eye(s): bilateral: Normal Inspection Oral Mucosa: Moist Neck: Supple Cardiovascular: Rhythm Regular, No Murmur Respiratory: Normal Breath Sounds, No Rales, No Rhonchi, No Wheezing Gastrointestinal/Abdominal: Soft, No Tenderness Extremity: Bilateral: Atraumatic, Normal ROM Neurological/Psych: Oriented x3, Normal Speech Assessment and Plan - Assessment and Plan (Free Text) Assessment: 72 F with hx of A Fib admitted for ACS On ASA 81 daily On Statins, B blockers and Nitrates As per Family request and Patient Primary Cardiology request patient is transferred to [place] D/W Dr. Corado/Dr. Hawthorne (Patient's Primary Measurement Operator) Objective - Vital Signs/Intake and Output Vital Signs (last 24 hours): Temp Pulse Resp BP Pulse Ox 98.7 F 80 20 100/52 L 96 06/30/18 15:38 06/30/18 16:00 06/30/18 15:38 06/30/18 15:38 06/30/18 15:38 Intake and Output: 06/30/18 07/01/18 18:59 06:59 Intake Total 400 Balance 400 - Labs Labs: 06/29/18 08:27 06/29/18 08:27 PT 34.2 SECONDS (9.7-12.2) H D 06/29/18 08:27 INR 3.1 H* D 06/29/18 08:27
== END 2018-06-30 18:55 | disposition left against medical advice (07) | DRG 311 ==
LOC: C.ER 09:49 → C.6T 10:56 → OBSVTOIN 06-29 16:47
PROVIDERS: ADMIT Internal Medicine Nephrology; ATTEND Internal Medicine Nephrology
DX: I24.9 Acute ischemic heart disease, unspecified (principal); I25.10 Atherosclerotic heart disease of native coronary artery without angina pectoris; I11.0 Hypertensive heart disease with heart failure; I48.91 Unspecified atrial fibrillation; I50.9 Heart failure, unspecified; R07.89 Other chest pain; E78.00 Pure hypercholesterolemia, unspecified; M79.89 Other specified soft tissue disorders; Z95.2 Presence of prosthetic heart valve; Z95.1 Presence of aortocoronary bypass graft; Z23 Encounter for immunization; Z79.01 Long term (current) use of anticoagulants